=== PATIENT | female | born 1995 | race Asian ===

== ENCOUNTER 2018-08-13 19:50 | Emergency (ER) | payer OTHER ==
[~2018-08-13] VITALS: Ht 165.1 cm; Wt 59.0 kg
[2018-08-13] MEDS ORDERED: NKM (20:01)
--- NOTE | 2018-08-13 20:22 | Emergency Room Report ---
History of Present Illness General Chief Complaint: Headache Source: Patient Present Illness HPI This is a 22-year-old female who is otherwise healthy, complains of headache that started last night. She denies this being the worst headache of her life. She denies any vomiting but she does complain of nausea. No blurry vision or double vision. She states that she does suffer from headaches intermittently. She took Tylenol with minimal relief. Allergies: Coded Allergies: SULFAMETHOXAZOLE (Verified Allergy, Unknown, 08/13/18) TRIMETHOPRIM (Verified Allergy, Unknown, 08/13/18) Patient History Past Medical History: none Past Surgical History: none Pertinent Family History: none Last Menstrual Period: 08/09/2018 Now: No : 0 Para: 0 Nursing Documentation-PM Past Medical History: No Stated History Review of Systems All Other Systems: negative except mentioned in HPI Physical Exam Vital Signs Date Time Temp Pulse Resp B/P (MAP) Pulse Ox O2 Delivery O2 Flow Rate FiO2 08/13/18 19:56 97.9 73 16 128/87 99 Room Air Eyes: bilateral eye normal inspection, bilateral eye PERRL ENT: hearing grossly normal, normal pharynx, no angioedema, normal voice Neck: full range of motion, supple/symm/no masses Respiratory: chest non-tender, lungs clear, normal breath sounds, speaking full sentences Gastrointestinal: normal bowel sounds, non tender, soft, non-distended, no guarding, no rebound Neurologic: alert, oriented x3, responsive, motor strength/tone normal, sensory intact, speech normal Skin: normal color, no rash, warm/dry, well hydrated Medical Decision Making Diagnostic Impression: Primary Impression: Headache ER Course This is a potentially very serious patient requiring multiple bedside evaluations. It is particularly concerning acute subarachnoid hemorrhage, intracranial hemorrhage, atypical migraine, meningitis, encephalitis, head trauma. The patient was given medication with significant relief. I did consider lumbar puncture, but I do not feel that it is indicated at this time. Last Vital Signs Date Time Temp Pulse Resp B/P (MAP) Pulse Ox O2 Delivery O2 Flow Rate FiO2 08/13/18 19:56 97.9 73 16 128/87 99 Room Air Disposition: HOME, SELF-CARE Condition: Stable Referrals: BALBINA FORD PLN,REFERRI (PCP) Patient Instructions: General Headache Without Cause DEMETRI HAQUE Aug 13, 2018 20:22
[2018-08-13] MEDS ORDERED: DiphenhydrAMINE 50mg/ml Inj IVP ONE (20:30)
[2018-08-13] MEDS ORDERED: Metoclopramide 10mg/2ml Inj IVP ONE (20:30)
[2018-08-13] MEDS ORDERED: Ketorolac 30mg Inj IV ONE (21:00)
[2018-08-13 21:25] VITALS: BP 122/74
[2018-08-13 21:46] VITALS: BP 122/74
== END 2018-08-13 21:40 | disposition home or self-care (01) ==
LOC: EMR 20:13
DX: R51 Headache (principal); Z88.2 Allergy status to sulfonamides
CPT/HCPCS: 81025; 96374; 96375; 99283; J1200; J2765